=== PATIENT | female | born 1965 | race Caucasian/White ===

== ENCOUNTER 2019-08-14 11:19 | Emergency (ER) | payer BC ==
[~2019-08-14] VITALS: Ht 162.6 cm; Wt 118.2 kg
[2019-08-14 11:35] VITALS: BP 135/103; TEMP 97.5
[2019-08-14] MEDS ORDERED: LEVAQUIN 750MG750 M1 PO (13:23)
[2019-08-14] MEDS ORDERED: PREDNISONE20 MG PO (13:23)
[2019-08-14] MEDS ORDERED: PROAIR HFA0.09 MG/AC IH (13:23)
[2019-08-14 13:45] VITALS: PULSE 79
== END 2019-08-14 13:45 | disposition home or self-care (01) ==
LOC: COL.ER 11:19
DX: J40 Bronchitis, not specified as acute or chronic (principal); I10 Essential (primary) hypertension; F17.210 Nicotine dependence, cigarettes, uncomplicated